=== PATIENT | male | born 1995 | race Caucasian/White ===

== ENCOUNTER 2021-04-05 13:49 | Emergency (ER) | payer BC, OTHER ==
[~2021-04-05] VITALS: Ht 180.3 cm; Wt 86.2 kg
[2021-04-05 14:19] LABS: BASOPHILS ABSOLUTE AUTO 0.04 K/mm3 (0.00-0.23); BASOPHILS PERCENT AUTO 0 % (0-2); EOSINOPHILS ABSOLUTE AUTO 0.01 K/mm3 (0.00-0.68); EOSINOPHILS PERCENT AUTO 0 % (0-6); Hematocrit 50.2 % (37.0-53.0); Hemoglobin 17.9 g/dL (13.5-17.5); IMMATURE GRAN ABSOLUTE AUTO 0.04 K/mm3 (0.00-0.10); IMMATURE GRAN PERCENT AUTO 0 % (0-1); LYMPHOCYTES ABSOLUTE AUTO 2.63 K/mm3 (0.84-5.20); LYMPHOCYTES PERCENT AUTO 23 % (21-46); MONOCYTES ABSOLUTE AUTO 1.03 K/mm3 (0.16-1.47); MONOCYTES PERCENT AUTO 9 % (4-13); Mean Corpuscular HGB 29.2 pg (26.0-34.0); Mean Corpuscular HGB Conc 35.7 g/dL (31.5-36.5); Mean Corpuscular Volume 82 fL (80-100); Mean Platelet Volume 11.2 fL (9.1-12.4); NEUTROPHILS ABSOLUTE AUTO 7.88 K/mm3 (1.96-9.15); NEUTROPHILS PERCENT AUTO 68 % (41-73); Platelet Count 243 K/mm3 (150-400); RDW Coefficient Variation 12.9 % (11.7-14.2); RDW Standard Deviation 38.3 fL (35.1-46.3); Red Blood Cell Count 6.14 M/mm3 (4.30-5.90); White Blood Cell Count 11.63 K/mm3 (4.00-11.30)
[2021-04-05] MEDS ORDERED: SERT100 PO (14:19)
[2021-04-05 14:34] LABS: Phosphorus, Blood 1.8 mg/dL (2.5-4.9)
[2021-04-05 14:51] LABS: Alanine Aminotransfer (ALT/SGP 49 U/L (12-78); Albumin, Blood 4.9 g/dL (3.4-5.0); Albumin/Globulin Ratio 1.1 (0.8-1.8); Alk Phos 69 U/L (50-136); Anion Gap 11 mmol/L (6-16); Aspartate Aminotrans (AST/SGOT 23 U/L (12-37); Bilirubin, Total 0.7 mg/dL (0.1-1.0); Blood Urea Nitrogen 18 mg/dL (8-24); Bun/Creatinine Ratio 16.1 (12.0-20.0); CO2, Blood 25 mmol/L (21-32); Calcium, Blood 10.6 mg/dL (8.5-10.1); Chloride, Blood 100 mmol/L (98-108); Creatinine, Blood 1.12 mg/dL (0.60-1.20); Globulin, Blood 4.6 g/dL (2.2-4.0); Glomerular Filtration Rate >60 (60-); Glucose, Blood 125 mg/dL (70-99); Potassium, Blood 2.9 mmol/L (3.5-5.5); Sodium, Blood 136 mmol/L (136-145); Total Protein, Blood 9.5 g/dL (6.4-8.2)
[2021-04-05] MEDS ORDERED: ONDA4ODT MM (19:09)
== END 2021-04-05 19:22 | disposition home or self-care (01) ==
LOC: ER 13:49
PROVIDERS: Physician Assistant
DX: K52.9 Noninfective gastroenteritis and colitis, unspecified (principal); Z79.899 Other long term (current) drug therapy
CPT/HCPCS: 80053; 83690; 83735; 84100; 85025; 96365; 96366; 96375; 99283-25; A9270; J2405; J3480; J7030; J7060

== ENCOUNTER 2024-03-22 19:56 | Inpatient (IN) | payer OTHER ==
[~2024-03-22] VITALS: Ht 177.8 cm; Wt 99.8 kg
[~2024-03-22 19:56] MED LIST: ONDA4ODT MM; SERT100 PO
[2024-03-22] MEDS ORDERED: FentaNYL Citrate 50 MCG/ML 2 ML Injection IV ONE ×2 (21:00→22:50)
[2024-03-22] MEDS ORDERED: Lactated Ringer's 1,000 ML IV SCH (22:00)
[2024-03-22 22:22] LABS: BASOPHILS ABSOLUTE AUTO 0.05 K/mm3 (0.00-0.23); BASOPHILS PERCENT AUTO 0 % (0-2); EOSINOPHILS ABSOLUTE AUTO 0.11 K/mm3 (0.00-0.68); EOSINOPHILS PERCENT AUTO 1 % (0-6); Hematocrit 46.5 % (37.0-53.0); Hemoglobin 15.6 g/dL (13.5-17.5); IMMATURE GRAN ABSOLUTE AUTO 0.11 K/mm3 (0.00-0.10); IMMATURE GRAN PERCENT AUTO 1 % (0-1); LYMPHOCYTES ABSOLUTE AUTO 2.94 K/mm3 (0.84-5.20); LYMPHOCYTES PERCENT AUTO 23 % (21-46); MONOCYTES ABSOLUTE AUTO 0.75 K/mm3 (0.16-1.47); MONOCYTES PERCENT AUTO 6 % (4-13); Mean Corpuscular HGB 29.1 pg (26.0-34.0); Mean Corpuscular HGB Conc 33.5 g/dL (31.5-36.5); Mean Corpuscular Volume 87 fL (80-100); Mean Platelet Volume 11.5 fL (9.1-12.4); NEUTROPHILS ABSOLUTE AUTO 8.66 K/mm3 (1.96-9.15); NEUTROPHILS PERCENT AUTO 69 % (41-73); Platelet Count 230 K/mm3 (150-400); RDW Coefficient Variation 13.1 % (11.7-14.2); RDW Standard Deviation 40.4 fL (35.1-46.3); Red Blood Cell Count 5.37 M/mm3 (4.30-5.90); White Blood Cell Count 12.62 K/mm3 (4.00-11.30)
[2024-03-22 22:35] LABS: International Normalized Ratio 1.02; Prothrombin Time Results 10.9 Sec (9.7-11.5)
[2024-03-22 22:53] LABS: Albumin, Blood 4.2 g/dL (3.4-5.0); Albumin/Globulin Ratio 1.1 (0.8-1.8); Bilirubin, Total 0.3 mg/dL (0.1-1.0); Bun/Creatinine Ratio 18.8 (12.0-20.0); Calcium, Blood 9.9 mg/dL (8.5-10.1); Creatinine, Blood 1.01 mg/dL (0.60-1.20); Globulin, Blood 3.9 g/dL (2.2-4.0); Potassium, Blood 3.7 mmol/L (3.5-5.5); Total Protein, Blood 8.1 g/dL (6.4-8.2)
[2024-03-22 23:15] LABS: Source, Urine Clean Catch
[2024-03-22 23:18] LABS: Bilirubin, Urine Neg (Neg); Blood, Urine Neg (Neg); Glucose Qualitative, Urine Neg (Neg); Ketones, Urine Neg (Neg); Leukocyte Esterase, Urine Neg (Neg); Nitrite, Urine Neg (Neg); Protein, Urine Neg (Neg); Urobilinogen, Urine NORM (Normal); pH, Urine 6.5 (5.0-8.0)
[2024-03-22 23:37] LABS: Appearance, Urine Clear (Clear); Color, Urine Pale Yellow (P-Yellow)
[2024-03-23] MEDS ORDERED: HYDROmorphone HCl/Pf 1MG SYR IV ONE (00:15)
[2024-03-23] MEDS ORDERED: Ondansetron HCl 2 MG / ML 2ML Vial ONE (00:20)
[2024-03-23] MEDS ORDERED: Ondansetron HCl 2 MG / ML 2ML Vial IV PRN ×2 (03:00→08:50)
[2024-03-23] MEDS ORDERED: HYDROmorphone HCl/Pf 1MG SYR IV PRN ×2 (03:00→08:50)
[2024-03-23] MEDS ORDERED: Ketorolac Tromethamine 30mg Vial IV ONE (03:50)
[2024-03-23] MEDS ORDERED: Lidocaine 4% 1 Patch TOP ONE ×2 (03:50→19:15)
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
[2024-03-23] MEDS ORDERED: FLU VACC TS2024-25(6MOS UP)/PF 45 MCG/0.5 ML SYRINGE IM SCH (08:50)
[2024-03-23] MEDS ORDERED: Magnesium Hydroxide Conc 10 ML UDC PO PRN (08:50)
[2024-03-23] MEDS ORDERED: OxyCODONE HCL 5 MG TAB PO PRN (08:55)
[2024-03-23] MEDS ORDERED: Docusate Sodium 100 MG Cap PO SCH (09:00)
[2024-03-23] MEDS ORDERED: Ketorolac Tromethamine 15mg Vial IV PRN (09:00)
[2024-03-23 10:17] VITALS: BP 155/92
[2024-03-23 14:26] VITALS: BP 134/80
[2024-03-23] MEDS ORDERED: HYDROcodone 10-APAP 325 TAB PO PRN (14:45)
--- NOTE | 2024-03-23 17:55 | NUR ---
ADMISSION: REPORT RECEIVED FROM ED RN. PT TO UNIT AT 1015. A/O, VSS. PT DENIES PAIN AT THIS TIME.L ARM IS IN A SLING, WIGGLES FINGERS AND DENIES N/T. SP02 STABLE ON RA, CONT BIOX APPLIED. PT ORIENTED TO ROOM AND CALL LIGHT.
--- NOTE | 2024-03-23 17:57 | NUR ---
SUMMARY: NO ACUTE CHANGE SINCE ADMIT. PT MEDICATED FOR PAIN PRN, PT REPORTS PAIN TOLERABLE. PT ABLE TO TAKE A SHOWER AND AMBULATES IN ROOM INDEPENDENTLY. PLAN IS FOR PAIN MANAGEMENT OVER NIGHT AND DC TOMORROW. NO SAFETY CONCERNS, PT USING CALL LIGHT.
[2024-03-23 19:22] VITALS: BP 139/96
[2024-03-24 03:47] VITALS: BP 148/82
--- NOTE | 2024-03-24 04:17 | NUR ---
SHIFT SUMMARY PT ABLE TO REST T/O SHIFT. PAIN MANAGED PER EMAR. PT IND IN THE ROOM. TOLERATING PO INTAKE, VOIDING WELL. VSS. NO OTHER CONCERNS AT THIS TIME, CALL LIGHT WITHIN REACH
[2024-03-24 07:45] VITALS: BP 148/98
[2024-03-24] MEDS ORDERED: HYDR1TAB94 PO (08:24)
[2024-03-24] MEDS ORDERED: DOCU100 PO (08:29)
[2024-03-24] MEDS ORDERED: Enoxaparin 40 MG/0.4 ML SYR SC SCH (09:00)
--- NOTE | 2024-03-24 12:06 | NUR ---
DISCHARGE PT EDUCATED ON AND RECEIVED PRINTED DC INSTRUCTIONS AND VERB AN UNDERSTANDING. HARD RX FOR NORCO GIVEN TO PT. IV DC'D. PT LEFT WITH SLING TO LEFT ARM. PT LEFT WITH ALL PERSONAL BELONGINGS AND MOTHER AT SIDE TO TAKE HIM HOME.
== END 2024-03-24 12:09 | disposition home or self-care (01) | DRG 200 ==
LOC: ER 19:56 → ERHOLD 19:57 → SURS 03-23 08:46 → ERHOLD 03-23 08:46 → SURS 03-23 09:31
PROVIDERS: Student in an Organized Health Care Education/Training Program; ADMIT Surgery
DX: S27.0XXA Traumatic pneumothorax, initial encounter (principal); S22.42XA Multiple fractures of ribs, left side, initial encounter for closed fracture; S42.012A Anterior displaced fracture of sternal end of left clavicle, initial encounter for closed fracture; V29.99XA Rider (driver) (passenger) of other motorcycle injured in unspecified traffic accident, initial encounter; Z88.5 Allergy status to narcotic agent; Z88.8 Allergy status to other drugs, medicaments and biological substances; Z79.899 Other long term (current) drug therapy; F41.9 Anxiety disorder, unspecified; Z98.890 Other specified postprocedural states
CPT/HCPCS: 70450; 71045; 71260; 72125; 73030; 73600; 74177; 80053; 81003; 82947; 83690; 85025; 85610; 86850; 86900; 86901; 94762; 96361; 96374-59; 96375; 96376; 96376-59; 99285-25; A9270; G0378; J1170; J1885; J2405; J3010; J7120; Q9967

== ENCOUNTER 2024-04-04 08:27 | Day surgery (SDC) | payer OTHER ==
[~2024-04-04] VITALS: Ht 177.8 cm; Wt 95.8 kg
[~2024-04-04 08:27] MED LIST changes: +DOCU100 PO; +HYDR1TAB94 PO
[2024-04-04] MEDS ORDERED: CeFAZolin Sodium 2,000 MG VIAL ONE (08:42)
[2024-04-04] MEDS ORDERED: Lactated Ringer's 1,000 ML IV ONE ×2 (08:42→08:59)
[2024-04-04] MEDS ORDERED: NS 0 ML IV ONE (08:43)
[2024-04-04] MEDS ORDERED: FentaNYL Citrate 50 MCG/ML 2 ML Injection ONE (09:30)
[2024-04-04] MEDS ORDERED: Ondansetron HCl 2 MG / ML 2ML Vial ONE ×2 (09:30→12:39)
[2024-04-04] MEDS ORDERED: Rocuronium Bromide 10 MG/ML 5ML Injection IV ONE (09:30)
[2024-04-04] MEDS ORDERED: Midazolam HCl 1MG / ML 2ML Vial ONE (09:30)
[2024-04-04] MEDS ORDERED: Sugammadex Sodium 200 MG/2ML SDV (100 MG/ML) ONE (09:30)
[2024-04-04] MEDS ORDERED: propofoL 20 ML IV ONE (09:30)
[2024-04-04] MEDS ORDERED: Dexamethasone Sod Phos 10 MG/ML 1ML VIAL ONE (09:30)
[2024-04-04] MEDS ORDERED: CefTRIAXone Sodium 2,000 MG in NS 100 ML IV SCH (09:35)
--- NOTE | 2024-04-04 09:42 | NUR ---
04/04/24 0942 Hernan Almeida RN TALKED TO ANESTHESIA, DR WILLIAM, AND ASKED IF FLUID BE CHANGED TO NORMAL SALINE FROM LACTATED RINGERS D/T ANTIBIOTIC CHANGED TO ROCEPHIN FROM ANCEF BY DR LINDA, SURGEON. DR WILLIAM STATES NO NEED TO CHANGE TO NORMAL SALINE.
[2024-04-04] MEDS ORDERED: HYDROmorphone HCl/Pf 1MG SYR ONE ×2 (10:33→10:46)
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
[2024-04-04] MEDS ORDERED: Ropivacaine 0.5% HCL/PF 5 MG/ML 30ML Vial ONE (10:58)
--- NOTE | 2024-04-04 12:52 | NUR ---
04/04/24 1252 Ar Barraza PT VOMITED SIGNIFICANT AMOUNT IN SDU. DR. WILLIAM CONSULTED REGARDING VITALS. NO MEDICATION GIVEN FOR HR OR B/P, PER DR. WILLIAM,
[2024-04-04] MEDS ORDERED: Metoclopramide HCl 5MG / ML 2ML Vial ONE (12:53)
[2024-04-04 13:09] VITALS: BP 147/98
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
[2024-04-04] MEDS ORDERED: HYDROcodone 5-APAP 325 TAB ONE (14:19)
== END 2024-04-04 14:46 | disposition home or self-care (01) ==
LOC: ORSCSDS 08:27
PROVIDERS: Orthopaedic Surgery
PROC: 0PSB04Z Reposition Left Clavicle with Internal Fixation Device, Open Approach (ICD-10-PCS; principal; 2024-04-04 09:45)
DX: S42.022A Displaced fracture of shaft of left clavicle, initial encounter for closed fracture (principal); V20.49XA Other motorcycle driver injured in collision with pedestrian or animal in traffic accident, initial encounter; F41.9 Anxiety disorder, unspecified
CPT/HCPCS: A9270; C1713; J0690; J0696; J1100; J1170; J2250; J2405; J2704; J2765; J2795; J3010; J7120